=== PATIENT | male | born 1985 | race Caucasian/White ===

== ENCOUNTER 2018-09-11 20:11 | Emergency (ER) | payer OTHER ==
[2018-09-11 20:30] VITALS: BP 103/62; PULSE 70; RESP 20; TEMP 98.6
--- NOTE | 2018-09-11 21:32 | ED ---
General Adult HPI - General Chief complaint: Skin/Abscess/Foreign Body Stated complaint: Fever Time Seen by Provider: 09/11/18 20:36 Source: patient, RN notes reviewed, old records reviewed Mode of arrival: ambulatory Limitations: no limitations - History of Present Illness Initial comments: 33-year-old male presents today with complaints of rectal pain, and pain with having a BM. Patient also complains of having a fever chills, cough. He reports his roommate at [facility] is had similar complaints and treated with antibiotics. Patient has had symptoms for the past day. He had some Motrin earlier prior to arrival. Patient states that he has pain over his rectum and pain with having a bowel movement. He reports he suffered from c onstipation. - Related Data Home Medications Medication Instructions Recorded Confirmed busPIRone HCl [Buspar] 5 mg PO BID 09/11/18 09/11/18 traZODone HCL 50 mg PO BID 09/11/18 09/11/18 Previous Rx's Medication Instructions Recorded Azithromycin [Zithromax Z-pack] 250 mg PO DIRECTED #6 tab 09/11/18 Bisacodyl [Dulcolax] 10 mg PO ONCE #20 tablet. 09/11/18 Hydrocortisone [Anusol-Hc] 1 applic RECTAL QID #30 gm 09/11/18 Allergies Allergy/AdvReac Type Severity Reaction Status Date / Time Penicillins Allergy Anaphylaxis Verified 09/11/18 20:30 Review of Systems ROS Statement: Those systems with pertinent positive or pertinent negative responses have been documented in the HPI. ROS Other: All systems not noted in ROS Statement are negative. Past Medical History Past Medical History: Asthma History of Any Multi-Drug Resistant Organisms: None Reported Past Surgical History: Orthopedic Surgery Additional Past Surgical History / Comment(s): L hand sx, foot sx Past Psychological History: Depression, PTSD Smoking Status: Current every day smoker Past Alcohol Use History: Occasional General Exam - General Exam Comments Initial Comments: 33-year-old male. Alert and oriented. No significant distress. Limitations: no limitations General appearance: alert, in no apparent distress Head exam: Present: atraumatic, normocephalic, normal inspection Eye exam: Present: normal appearance, PERRL, EOMI. Absent: scleral icterus, conjunctival injection, periorbital swelling ENT exam: Present: normal exam, mucous membranes moist Neck exam: Present: normal inspection. Absent: tenderness, meningismus, lymph adenopathy Respiratory exam: Present: normal lung sounds bilaterally. Absent: respiratory distress, wheezes, rales, rhonchi, stridor Cardiovascular Exam: Present: regular rate, normal rhythm, normal heart sounds. Absent: systolic murmur, diastolic murmur, rubs, gallop, clicks GI/Abdominal exam: Present: soft, normal bowel sounds. Absent: distended, tenderness, guarding, rebound, rigid Rectal exam: Present: normal rectal tone, hemorrhoids (Thrombosed hemorrhoid.). Absent: normal inspection Extremities exam: Present: normal inspection, full ROM, normal capillary refill. Absent: tenderness, pedal edema, joint swelling, calf tenderness Back exam: Present: normal inspection Neurological exam: Present: alert, oriented X3, CN II-XII intact Psychiatric exam: Present: normal affect, normal mood Skin exam: Present: warm, dry, intact, normal color. Absent: rash Course Vital Signs 09/11/18 20:26 Temperature 98.6 F Pulse Rate 70 Respiratory 20 Rate Blood Pressure 103/62 O2 Sat by Pulse 95 Oximetry Medical Decision Making - Medical Decision Making Patient is a 33-year-old male presents emergency department today with complaints of rectal pain as well as upper respiratory symptoms. Reports that it remitted similar complaints was treated with antibiotic. He has a cough. Evidence of erythematous oropharynx. Patient is also making complaint of rectal pain. His evidence of a thrombosed hemorrhoid. Rectal control [place] at this time, discussed follow-up with surgical specialty. Patient at this time started on azithromycin for URI, pharyngitis. Discussed also using Anusol cream over the hemorrhoid and completing stool softeners. Discussed administered explained water. Given referral for surgeon for possible hemorrhoid banding. Disposition Clinical Impression: Thrombosed hemorrhoids, URI (upper respiratory infection) Disposition: HOME SELF-CARE Condition: Good Instructions (If sedation given, give patient instructions): Acute Bronchitis (ED), Thrombosed Hemorrhoid (ED) Additional Instructions: Patient is advised to place creams over area, use stool softners and take abx. Return to ED if any alarming signs or symptoms occur. Prescriptions: Hydrocortisone [Anusol-Hc] 1 applic RECTAL QID #30 gm Bisacodyl [Dulcolax] 10 mg PO ONCE #20 tablet. Azithromycin [Zithromax Z-pack] 250 mg PO DIRECTED #6 tab Is patient prescribed a controlled substance at d/c from ED?: No Referrals: Ramón Simons DO [Primary Care Provider] - 1-2 days Mason Mercedes MD [STAFF PHYSICIAN] - 1-2 days Time of Disposition: 21:28
== END 2018-09-11 22:04 | disposition home or self-care (01) ==
LOC: EC 20:11
DX: J06.9 Acute upper respiratory infection, unspecified (principal); K64.5 Perianal venous thrombosis; F32.9 Major depressive disorder, single episode, unspecified; F43.10 Post-traumatic stress disorder, unspecified; F17.200 Nicotine dependence, unspecified, uncomplicated; Z87.09 Personal history of other diseases of the respiratory system; Z79.899 Other long term (current) drug therapy; Z88.0 Allergy status to penicillin
CPT/HCPCS: 99283